=== PATIENT | female | born 1985 | race African-American/Black ===

== ENCOUNTER 2022-10-08 10:32 | Emergency (ER) | payer MEDICAID ==
[~2022-10-08] VITALS: Ht 175.3 cm; Wt 111.6 kg
[2022-10-08 10:32] VITALS: BP_SYST 127; PULSE 84; RESP 17; TEMP 98.3; O2SAT 97
--- NOTE | 2022-10-08 10:32 | NUR ---
BROUGHT BACK TO BED #6 AND TRIAGED. REPORT GIVEN ERNESTO
--- NOTE | 2022-10-08 10:40 | NUR ---
Pt brought by self,ambulatory, A&Ox4, pt presents to ER with chest pain, intermittent SOB for 3 years, states she has abnormal pituitary gland, VSS,skin pink and warm, cap refill <3, will cont to monitor.
--- NOTE | 2022-10-08 10:54 | NUR ---
Dr Rios evaluating patient at bedside
[2022-10-08 11:25] LABS: BASOPHILS % (AUTO) 0.9 % (0.0-2.0); EOSINOPHILS # (AUTO) 0.1 K/uL (0.0-0.4); EOSINOPHILS % (AUTO) 2.3 % (0.0-4.0); HEMATOCRIT 39.7 % (36-48); HEMOGLOBIN 12.7 g/dL (12.0-16.0); LYMPHOCYTES # (AUTO) 1.5 K/uL (1.0-5.5); LYMPHOCYTES % (AUTO) 30.3 % (20.5-51.5); MEAN CORPUSCULAR HEMOGLOBIN 26 pg (27-31); MEAN CORPUSCULAR HGB CONC 32 % (32-36); MEAN CORPUSCULAR VOLUME 81 fL (79.0-98.0); MONOCYTES # (AUTO) 0.6 K/uL (0.0-1.0); MONOCYTES % (AUTO) 12.6 % (1.7-9.3); NEUTROPHILS # (AUTO) 2.7 K/uL (1.8-7.7); NEUTROPHILS % (AUTO) 53.9 % (40.0-70.0); PLATELET COUNT (AUTO) 192 K/uL (130-430); RED BLOOD CELL COUNT(AUTO) 4.93 MIL/uL (4.2-6.2); RED CELL DISTRIBUTION WIDTH 14.4 % (9.0-15.0); WHITE BLOOD COUNT (AUTO) 4.9 K/uL (4.8-10.8)
[2022-10-08 11:51] LABS: ANION GAP 7 (5-15); CALCIUM 8.5 mg/dL (8.4-11.0); CHLORIDE 103 mmol/L (98-107); CREATININE 0.84 mg/dL (0.55-1.30); GFR AFRICAN AMERICAN 99 mL/min (>90); GLUCOSE 78 mg/dL (74-106); UREA NITROGEN, BLOOD 11 mg/dL (8-21)
[2022-10-08 12:04] LABS: ALANINE AMINOTRANSFERASE 13 U/L (12-78); ALBUMIN 3.3 g/dL (3.4-4.8); ASPARTATE AMINOTRANSFERASE 13 U/L (10-37); THYROID STIMULATING HORMONE 0.77 uIu/mL (0.34-4.82); TOTAL BILIRUBIN 0.3 mg/dL (0.0-1.0)
[2022-10-08] MEDS ORDERED: IBUP-1969 PO (12:19)
[2022-10-08 13:06] VITALS: BP_SYST 127; PULSE 84; RESP 17; TEMP 98.3; O2SAT 97
--- NOTE | 2022-10-08 13:06 | NUR ---
Patient given written and verbal discharge instructions and verbalizes understanding. ER MD discussed with patient the results and treatment provided. Patient in stable condition. ID arm band removed. Rx of IBUPROFEN given. Patient educated on pain management and to follow up with PMD. Pain Scale 0/10. Opportunity for questions provided and answered. Medication side effect fact sheet provided.
== END 2022-10-08 13:06 | disposition home or self-care (01) ==
LOC: SED 10:32
DX: Z00.00 Encounter for general adult medical examination without abnormal findings (principal); R07.89 Other chest pain; I10 Essential (primary) hypertension; F15.10 Other stimulant abuse, uncomplicated; Z76.0 Encounter for issue of repeat prescription; Z79.899 Other long term (current) drug therapy
CPT/HCPCS: 36415; 71045; 80053; 83880; 84439; 84443; 84484; 85025; 93005; 99285